=== PATIENT | male | born 1965 | race Caucasian/White ===

== ENCOUNTER 2017-03-12 18:39 | Observation (INO) | payer OTHER, MEDICARE ==
[~2017-03-12] VITALS: Ht 180.3 cm; Wt 102.1 kg
[~2017-03-12 18:39] MED LIST: AMBIEN10 MG PO; COUMADIN5 MG PO; LISINOPRIL5 MG PO; LOPRESSOR100 MG PO; PACERONE100 MG PO; ZETIA10 MG PO
--- NOTE | 2017-03-12 21:24 | Diagnostic Imaging Report ---
CHEST SINGLE (NOT PORTABLE), 03/12/2017 6:43 PM Technique: CHEST SINGLE (NOT PORTABLE) Comparison: 05/09/2009 Clinical history: Abnormal hemoglobin, atrial fibrillation Findings: Lines/tubes: Left chest wall dual-lead ICD. Heart/mediastinum: Within normal limits. Lungs/pleural spaces: Low lung volumes without consolidation or edema. No effusion. Lung apices are partially excluded. Impression: 1. Lines/Tubes: None 2. No acute abnormality. Signed by: Dr Meaghan Saldivar MD on 03/12/2017 9:20 PM
[2017-03-12 22:10] LABS: BASOPHILS # (AUTO) 0.1 (0.0-0.1); BASOPHILS % 1.5 % (0.0-1.0); EOSINOPHILS # (AUTO) 0.4 (0.0-0.4); EOSINOPHILS % 5.8 % (0.0-6.0); HEMATOCRIT 25.7 % (38.2-49.6); LYMPHOCYTES # (AUTO) 1.8 (1.0-3.2); LYMPHOCYTES % 26.9 % (18.0-39.1); MEAN CORPUSCULAR HEMOGLOBIN 17.4 pg (28-32); MEAN CORPUSCULAR HGB CONC 25.3 g/dL (31-35); MEAN CORPUSCULAR VOLUME 68.9 fL (81-99); MONOCYTES # (AUTO) 0.4 (0.2-0.8); MONOCYTES % 6.1 % (4.4-11.3); NEUTROPHILS % 59.4 % (38.7-80.0); PLATELET COUNT 659 x10e3/uL (140-360); RED BLOOD COUNT 3.73 x10e6/uL (4.3-5.7); RED CELL DISTRIBUTION WIDTH 25.4 % (11.7-14.4)
[2017-03-12 22:11] LABS: HEMOGLOBIN 6.5 g/dL (14.0-18.0)
[2017-03-12] MEDS ORDERED: SODIUM CHLORIDE 0.9% 250ML 250 ML IV ONE (22:15)
[2017-03-12 22:19] LABS: INR 1.45; PARTIAL THROMBOPLASTIN TIME 26.4 seconds (23.8-35.5); PROTHROMBIN TIME 18.4 seconds (11.9-14.5)
[2017-03-12 22:26] LABS: ALANINE AMINOTRANSFERASE 23 IU/L (0-55); ALBUMIN 4.2 g/dL (3.5-5.0); ALBUMIN/GLOBULIN RATIO 1.1 (0.8-2.0); ALKALINE PHOSPHATASE 76 IU/L (40-150); ANION GAP 15.1 mmol/L (8-16); BLOOD UREA NITROGEN 16 mg/dL (7-26); BUN/CREATININE RATIO 15 (6-25); CALCIUM 9.3 mg/dL (8.4-10.2); CARBON DIOXIDE 27 mmol/L (22-29); CHLORIDE 104 mmol/L (98-107); CREATINE KINASE 119 IU/L (30-200); CREATININE, SERUM 1.05 mg/dL (0.72-1.25); EST GLOMERULAR FILTRATION RATE > 60 ML/MIN (60-); GLUCOSE 139 mg/dL (74-118); POTASSIUM 4.1 mmol/L (3.5-5.1); SODIUM 142 mmol/L (136-145)
[2017-03-12 22:36] LABS: ANISOCYTOSIS SLIG; HYPOCHROMASIA SLIGHT; POIKILOCYTOSIS SLIGHT; TEAR DROP CELLS FEW
[2017-03-12 22:37] LABS: ELLIPTOCYTE, RBC SLIGHT; PLATELET ESTIMATE MODERATELY INCREASED; PLATELET MORPHOLOGY COMMENT NORMAL; RBC MORPHOLOGY COMMENT ABNORMAL; STOMATOCYTES SLIG
[2017-03-12] MEDS ORDERED: ONDANSETRON HCL INJ 2 MG/ML VIAL IV PRN (22:45)
[2017-03-12] MEDS ORDERED: SODIUM CHLORIDE FLUSH 10 ML SYR INJ PRN (22:45)
[2017-03-12 23:04] LABS: FERRITIN 1.65 ng/mL (21.81-274.66)
[2017-03-13] VITALS (7 sets, daily range): BP systolic 114–128; BP diastolic 57–70
[2017-03-13] MEDS ORDERED: METOPROLOL TART25 MG PO (00:34)
[2017-03-13] MEDS ORDERED: LOSARTAN POTASS25 MG PO (00:34)
[2017-03-13] MEDS ORDERED: AZELASTINE137 MCG/0. (00:34)
[2017-03-13] MEDS ORDERED: DULERA 100 MCG/13 GM (00:34)
[2017-03-13] MEDS: ACETAMINOPHEN 325 MG TAB PO PRN ×2 (01:30→21:18)
[2017-03-13] MEDS ORDERED: SODIUM CHLORIDE 0.9% 250ML 250 ML ONE ×2 (01:35→05:17)
[2017-03-13] MEDS: FUROSEMIDE INJ 10 MG/ML 2 ML VIAL IV PRN ×2 (05:00→09:35)
[2017-03-13] MEDS ORDERED: BISACODYL 5 MG TAB EC PO ONE (07:15)
[2017-03-13] MEDS ORDERED: PEG (High)/E-LYTE SOLN 4,000 ML BTL PO ONE (07:15)
--- NOTE | 2017-03-13 09:34 | History and Physical ---
CHIEF COMPLAINT: Shortness of breath and fatigue. Abnormal hemoglobin and hematocrit of 6.5 and 25.7, on anticoagulant therapy. HISTORY: Patient is a 51-year-old male who has multiple medical problems. Patient has a history of chronic atrial fibrillation, on Coumadin treatment. The patient came in with hemoglobin and hematocrit of 6.5 and 25.7. His INR was 1.45. Patient has anemia, and at times previously had blood transfusion years ago. The patient is otherwise stable at this time. No chest pain. Only shortness of breath when he increases his activities. PAST MEDICAL HISTORY: Congestive heart failure with AICD, coronary disease with previous stent, atrial fibrillation, on anticoagulant therapy. PAST SURGICAL HISTORY: AICD and bilateral hernia repair. SOCIAL HISTORY: Patient does not smoke, but he is a social drinker. ALLERGIES: NO KNOWN ALLERGIES. HOME MEDICATIONS: Zetia, losartan, metoprolol tartrate, Dulera, Coumadin, and Ambien. PHYSICAL EXAMINATION VITAL SIGNS: Temperature is 98, blood pressure 119/55, pulse rate 84, respirations 20. GENERAL: The patient is not in acute distress. He is awake. HEENT: Normocephalic, atraumatic and anicteric. NECK: Supple grossly. PULMONARY: Diminished breath sounds. CARDIOVASCULAR: Irregularly irregular rate control. ABDOMEN: Soft and nontender. No distention. EXTREMITIES: No gross cyanosis or edema. NEUROLOGIC: No focal deficit. LABORATORY: WBC 6.6, hemoglobin 6.5, hematocrit 25.7, and platelets 659,000. Coagulation: INR is 1.5. Chemistry: Sodium is 142, potassium 4.1, chloride 104, bicarb 27, BUN 15, creatinine 1, glucose is 1.39. Iron level is 14. Iron saturation is 2. IMPRESSION 1. Symptomatic anemia: Etiology unclear. The patient has iron deficiency. 2. Multiple chronic baseline problems, including anticoagulant therapy, subtherapeutic. 3. History of congestive heart failure, compensated. 4. Automatic implanted cardioverter defibrillator. 5. Atrial fibrillation. PLAN: Endoscopy by Dr. Dg Davis and consult. Blood transfusion. Repeat lab work. CT of chest, abdomen and pelvis with IV contrast. Will monitor the patient closely. Repeat the patient's blood work after blood transfusion. Job#: [id number] MD
[2017-03-13] MEDS: METOPROLOL TARTRATE 25 MG TAB PO SCH ×2 (09:35→17:40)
[2017-03-13] MEDS: PANTOPRAZOLE 40 MG 10ML VIAL IV SCH (09:35)
[2017-03-13] MEDS: LOSARTAN POTASSIUM 25 MG TAB PO SCH (09:35)
[2017-03-13] MEDS: EZETIMIBE 10 MG TAB PO SCH (09:35)
[2017-03-13] MEDS ORDERED: SODIUM CHLORIDE 0.9% 50ML 50 ML ONE (09:45)
[2017-03-13] MEDS ORDERED: IOPAMIDOL 370 MG/ML 200 ML INFUS..BTL INJ ONE (09:45)
[2017-03-13 10:58] LABS: BASOPHILS # (AUTO) 0.1 (0.0-0.1); BASOPHILS % 1.5 % (0.0-1.0); EOSINOPHILS # (AUTO) 0.3 (0.0-0.4); EOSINOPHILS % 4.7 % (0.0-6.0); HEMATOCRIT 30.5 % (38.2-49.6); HEMOGLOBIN 8.5 g/dL (14.0-18.0); LYMPHOCYTES # (AUTO) 1.2 (1.0-3.2); LYMPHOCYTES % 17.5 % (18.0-39.1); MEAN CORPUSCULAR HEMOGLOBIN 19.5 pg (28-32); MEAN CORPUSCULAR HGB CONC 27.9 g/dL (31-35); MONOCYTES # (AUTO) 0.5 (0.2-0.8); MONOCYTES % 7.5 % (4.4-11.3); NEUTROPHILS # (AUTO) 4.5 (2.1-6.9); NEUTROPHILS % 68.5 % (38.7-80.0); PLATELET COUNT 488 x10e3/uL (140-360); RED BLOOD COUNT 4.36 x10e6/uL (4.3-5.7); RED CELL DISTRIBUTION WIDTH 25.6 % (11.7-14.4)
[2017-03-13 11:18] LABS: ALANINE AMINOTRANSFERASE 22 IU/L (0-55); ALBUMIN 4.2 g/dL (3.5-5.0); ALBUMIN/GLOBULIN RATIO 1.3 (0.8-2.0); ALKALINE PHOSPHATASE 72 IU/L (40-150); ANION GAP 13.4 mmol/L (8-16); BLOOD UREA NITROGEN 15 mg/dL (7-26); BUN/CREATININE RATIO 15 (6-25); CALCIUM 8.8 mg/dL (8.4-10.2); CARBON DIOXIDE 25 mmol/L (22-29); CHLORIDE 101 mmol/L (98-107); CREATININE, SERUM 0.97 mg/dL (0.72-1.25); EST GLOMERULAR FILTRATION RATE > 60 ML/MIN (60-); GLUCOSE 136 mg/dL (74-118); POTASSIUM 3.4 mmol/L (3.5-5.1); SODIUM 136 mmol/L (136-145)
--- NOTE | 2017-03-13 11:45 | Diagnostic Imaging Report ---
PROCEDURE: CT scan of the chest abdomen and pelvis WITH intravenous contrast, using standard protocol. TECHNIQUE: The chest was scanned utilizing a multidetector helical scanner from the lung apex through the level of the lesser trochanters after the IV administration of 100 cc of Isovue 370. Coronal and sagittal multiplanar reformations were obtained. COMPARISON: CT abdomen and pelvis without contrast 04/29/2013. INDICATIONS: SYMPTOMATIC ANEMIA FINDINGS: Chest: Lines/tubes: None. Lungs and Airways: Bandlike atelectasis in the right lower and middle lobes. The lungs and airways are otherwise normal with no focal abnormality demonstrated. Pleura: The pleural spaces are clear. Heart and mediastinum: Left subclavian approach implantable cardiac device. It leads lie within the right atrium and right ventricle. Visualized portions of the thyroid gland appear normal. Calcified subcarinal lymph nodes. No axillary, hilar, or mediastinal lymphadenopathy. No ectasia or aneurysmal dilatation of the thoracic aorta. Pulmonary outflow tract is of normal caliber. Left anterior distending coronary artery calcifications with probable stent. No pericardial effusion. Soft tissues: Discussed below Bones: Discussed below. Abdomen/pelvis: Liver: No focal hepatic lesion or intrahepatic biliary ductal dilatation. The gallbladder is unremarkable. Spleen: Multiple calcified granulomata. No splenomegaly. Small splenule within the hilum. Pancreas: No focal mass or ductal dilatation. Adrenals: No nodules. Kidneys: Lobulated renal contours may be congenital or related to prior infectious/inflammatory process. No focal renal mass lesion. No calculus or hydronephrosis. Pelvic organs: The urinary bladder is unremarkable. Prostate and seminal vesicles appear normal. GI tract: As before, there are diverticula scattered along the course of the descending and sigmoid colon. No evidence of wall thickening or adjacent inflammatory change. Optimally, the large bowel is unremarkable. The appendix is normal. Small hiatal hernia. No small bowel dilatation to suggest obstruction. Lymph nodes: No pelvic sidewall, retroperitoneal, or mesenteric lymphadenopathy. Blood vessels: Atherosclerotic calcification of the abdominal aorta, major branch vessels, and iliac arterial systems, without aneurysmal dilatation. Incidental note of a separate origin of the left gastric artery from the celiac axis, with a replaced left hepatic artery arising from the left gastric artery. Portal vein, splenic vein, and central superior mesenteric vein are patent. Peritoneum/retroperitoneum: No ascites or pneumoperitoneum. Soft tissues: Umbilical hernia contains fat with associated inflammatory change. Fat containing right inguinal hernia. Bones: No osseous destructive lesions. Degenerative disc changes of the lower cervical and lumbar spine. IMPRESSION: No acute intrathoracic, abdominal, or pelvic CT abnormalities. Small umbilical ventral hernia contains inflamed omental fat. No evidence of bowel obstruction. Recurrent right inguinal fat-containing hernia. Atherosclerotic vascular disease. Large bowel diverticulosis without evidence of diverticulitis. Small hiatal hernia. Evidence of prior granulomatous infection. Dictated by: Giacomo Perez M.D. on 03/13/2017 at 11:54 Electronically approved by: Giacomo Perez M.D. on 03/13/2017 at 11:54
--- NOTE | 2017-03-13 11:46 | Diagnostic Imaging Report ---
PROCEDURE: CT ABDOMEN AND PELVIS WITH CONTRAST Findings: See impression IMPRESSION: For full dictated report please refer to "CT CHEST WITH CONTRAST" also from 03/13/2017. Dictated by: Giacomo Perez M.D. on 03/13/2017 at 11:55 Electronically approved by: Giacomo Perez M.D. on 03/13/2017 at 11:55
[2017-03-13 11:57] LABS: PLATELET ESTIMATE ADEQUATE; RBC MORPHOLOGY COMMENT ABNORMAL
[2017-03-13 11:58] LABS: ANISOCYTOSIS MODERATE; HYPOCHROMASIA MODERATE; MICROCYTOSIS MARKED; OVALOCYTES FEW; PLATELET MORPHOLOGY COMMENT FEW LARGE; POLYCHROMASIA FEW; TEAR DROP CELLS FEW
[2017-03-13 12:08] LABS: FOLATE 17.6 ng/mL (7.0-15.4)
[2017-03-13] MEDS ORDERED: POTASSIUM CHLORIDE 20 MEQ TAB CR PO NR ×2 (14:00→17:30)
[2017-03-13] MEDS ORDERED: MIDAZOLAM HCL 2 MG/2 ML VIAL ONE (18:48)
[2017-03-13] MEDS ORDERED: FENTANYL CITRATE/PF 100MCG/2 ML INJ ONE (18:48)
[2017-03-13] MEDS: ZOLPIDEM TARTRATE 10 MG TAB PO PRN (21:18)
[2017-03-14] VITALS (7 sets, daily range): BP systolic 94–135; BP diastolic 58–76
[2017-03-14 07:07] LABS: BASOPHILS # (AUTO) 0.1 (0.0-0.1); BASOPHILS % 0.9 % (0.0-1.0); EOSINOPHILS # (AUTO) 0.3 (0.0-0.4); HEMATOCRIT 31.3 % (38.2-49.6); HEMOGLOBIN 8.7 g/dL (14.0-18.0); LYMPHOCYTES % 24.4 % (18.0-39.1); MEAN CORPUSCULAR HEMOGLOBIN 19.4 pg (28-32); MEAN CORPUSCULAR HGB CONC 27.8 g/dL (31-35); MEAN CORPUSCULAR VOLUME 69.9 fL (81-99); MONOCYTES # (AUTO) 0.7 (0.2-0.8); MONOCYTES % 8.4 % (4.4-11.3); NEUTROPHILS % 62.1 % (38.7-80.0); PLATELET COUNT 538 x10e3/uL (140-360); RED BLOOD COUNT 4.48 x10e6/uL (4.3-5.7)
[2017-03-14 07:34] LABS: ALANINE AMINOTRANSFERASE 22 IU/L (0-55); ALBUMIN/GLOBULIN RATIO 1.2 (0.8-2.0); ALKALINE PHOSPHATASE 77 IU/L (40-150); ANION GAP 14.9 mmol/L (8-16); BLOOD UREA NITROGEN 16 mg/dL (7-26); BUN/CREATININE RATIO 18 (6-25); CALCIUM 9.2 mg/dL (8.4-10.2); CARBON DIOXIDE 27 mmol/L (22-29); CHLORIDE 103 mmol/L (98-107); EST GLOMERULAR FILTRATION RATE > 60 ML/MIN (60-); GLUCOSE 101 mg/dL (74-118); POTASSIUM 3.9 mmol/L (3.5-5.1); SODIUM 141 mmol/L (136-145)
[2017-03-14] MEDS: LOSARTAN POTASSIUM 25 MG TAB PO SCH (10:00)
[2017-03-14] MEDS: METOPROLOL TARTRATE 25 MG TAB PO SCH ×2 (10:00→17:51)
[2017-03-14] MEDS: EZETIMIBE 10 MG TAB PO SCH (10:00)
[2017-03-14] MEDS: PANTOPRAZOLE 40 MG 10ML VIAL IV SCH (10:00)
[2017-03-14] MEDS ORDERED: LIDOCAINE HCL 2% LOCAL INJ 5 ML SDV VIAL INJ ONE (18:01)
[2017-03-14] MEDS ORDERED: PROPOFOL IV EMULSION 10 MG/ML 20 ML VIAL ONE (18:01)
[2017-03-14] MEDS: ZOLPIDEM TARTRATE 10 MG TAB PO PRN (23:00)
[2017-03-14] MEDS: ACETAMINOPHEN 325 MG TAB PO PRN (23:00)
[2017-03-15] VITALS: BP 102/58
[2017-03-15 04:00] VITALS: BP_SYST 100; BP_SYST 117; BP_DIAS 54; BP_DIAS 66
[2017-03-15 07:01] LABS: BASOPHILS # (AUTO) 0.1 (0.0-0.1); BASOPHILS % 0.8 % (0.0-1.0); EOSINOPHILS # (AUTO) 0.3 (0.0-0.4); EOSINOPHILS % 3.9 % (0.0-6.0); HEMATOCRIT 30.5 % (38.2-49.6); HEMOGLOBIN 8.2 g/dL (14.0-18.0); LYMPHOCYTES # (AUTO) 2.3 (1.0-3.2); LYMPHOCYTES % 31.7 % (18.0-39.1); MEAN CORPUSCULAR HEMOGLOBIN 19.2 pg (28-32); MEAN CORPUSCULAR HGB CONC 26.9 g/dL (31-35); MEAN CORPUSCULAR VOLUME 71.6 fL (81-99); MONOCYTES # (AUTO) 0.7 (0.2-0.8); MONOCYTES % 10.4 % (4.4-11.3); NEUTROPHILS # (AUTO) 3.8 (2.1-6.9); NEUTROPHILS % 52.8 % (38.7-80.0); PLATELET COUNT 559 x10e3/uL (140-360); RED BLOOD COUNT 4.26 x10e6/uL (4.3-5.7); RED CELL DISTRIBUTION WIDTH 26.3 % (11.7-14.4)
[2017-03-15 07:37] LABS: ANION GAP 12.8 mmol/L (8-16); BLOOD UREA NITROGEN 20 mg/dL (7-26); BUN/CREATININE RATIO 24 (6-25); CALCIUM 9.1 mg/dL (8.4-10.2); CARBON DIOXIDE 26 mmol/L (22-29); CHLORIDE 107 mmol/L (98-107); CREATININE, SERUM 0.84 mg/dL (0.72-1.25); EST GLOMERULAR FILTRATION RATE > 60 ML/MIN (60-); GLUCOSE 100 mg/dL (74-118); POTASSIUM 3.8 mmol/L (3.5-5.1); SODIUM 142 mmol/L (136-145)
[2017-03-15 08:07] LABS: EOSINOPHILS % (MANUAL) 3 % (0-7); LYMPHOCYTES % (MANUAL) 21 % (19-48); MONOCYTES % (MANUAL) 18 % (3.4-9.0); NEUTROPHILS % (MANUAL) 57 % (40-74)
[2017-03-15 08:08] VITALS: BP 95/51
[2017-03-15 08:08] LABS: MICROCYTOSIS MARKED; PLATELET ESTIMATE SLIGHTLY INCREASED; PLATELET MORPHOLOGY COMMENT NORMAL; RBC MORPHOLOGY COMMENT ABNORMAL
[2017-03-15 08:09] LABS: ANISOCYTOSIS MARKED; HYPOCHROMASIA MODERATE; OVALOCYTES FEW; POLYCHROMASIA FEW
[2017-03-15] MEDS: EZETIMIBE 10 MG TAB PO SCH (08:09)
[2017-03-15] MEDS: PANTOPRAZOLE 40 MG 10ML VIAL IV SCH (08:09)
[2017-03-15] MEDS: METOPROLOL TARTRATE 25 MG TAB PO SCH (08:10)
[2017-03-15] MEDS: LOSARTAN POTASSIUM 25 MG TAB PO SCH (08:10)
[2017-03-15 09:32] VITALS: BP 95/51
[2017-03-15] MEDS ORDERED: COLACE100 MG PO (11:08)
[2017-03-15] MEDS ORDERED: PANTOPRAZOLE SO40 MG PO (11:09)
[2017-03-15] MEDS ORDERED: CARAFATE1 GM PO (11:09)
[2017-03-15] MEDS ORDERED: HEMOCYTE PLUS1 EACH PO (11:10)
--- NOTE | 2017-03-15 11:51 | Discharge Summary ---
PCP: Dr. Pino Fuller FINAL DIAGNOSES: 1. Severe anemia with symptomatic shortness of breath, status post 2 units blood transfusion. His hemoglobin and hematocrit today are 8.2 and 30.5. 2. Anticoagulant therapy, subtherapeutic however. 3. Status post esophagogastroduodenoscopy and colonoscopy with findings of esophageal ulcer without bleed, hiatal hernia, gastric polyps, gastritis, diverticulosis without diverticulitis. SUMMARY: Patient is a 51-year-old male who came in with hemoglobin and hematocrit of 6.5 and 25.7. Patient was on anticoagulant therapy. INR was 1.45. Patient had other tests including imaging tests. The CT abdomen and pelvis along with CT of the chest were without any significant abnormality. Patient is stable. He underwent EGD and colonoscopy by Dr. Dg Davis. Finding as mentioned above. The patient will be discharged home today with the following medications: 1. Colace 100 mg b.i.d. 2. Carafate suspension 1 g q.a.c. nightly. 3. Protonix 40 mg daily. 4. Hemocyte Plus 1 tablet b.i.d. The patient was instructed to follow up with Dr. Davis next week. The patient will hold off on his anticoagulant therapy until he is seen by Dr. Davis. Patient is otherwise stable at this time. No further workup needed. Job#: [id number]
[2017-03-15 12:01] VITALS: BP 129/69
--- NOTE | 2017-04-18 18:35 | Consultation ---
DATE OF CONSULTATION: March 13, 2017 GASTROENTEROLOGY CONSULTATION HISTORY OF PRESENT ILLNESS: This is a 51-year-old who has history of congestive heart failure with AICD, coronary artery disease with previous stent placement, atrial fibrillation on anticoagulation therapy. Presented to the hospital because of problems with anemia, shortness of breath and fatigue. His hemoglobin is down as low as 6.5. Patient does not have any abdominal pain, nausea or vomiting at this point. OTHER MEDICAL PROBLEMS: Significant for congestive heart failure, previous AICD, coronary artery disease with previous stent, atrial fibrillation. ALLERGIES: NONE. SOCIAL HISTORY: Does not smoke or drink. MEDICATIONS AT HOME: Including Zetia, losartan, metoprolol, Dulera, Coumadin and Ambien. REVIEW OF SYSTEMS: At this point denies any chest pain, denies any shortness of breath. Denies any dysphagia or odynophagia. Denies any dysuria, hematuria, or any kind of syncopal episode. PHYSICAL EXAMINATION GENERAL: The patient is awake, alert, appears to be stable. Not in acute distress at this point. VITAL SIGNS: He is afebrile currently with stable vital signs. HEAD, EYES, EARS, NOSE AND THROAT: Normocephalic and atraumatic. Sclera is anicteric. NECK: Supple. CARDIAC: Exam is regular. LUNGS: Clear. ABDOMEN: Soft. There is no distention at this point. It is nontender. EXTREMITIES: No cyanosis, no clubbing. LAB VALUES: Significant for INR was 1.5, hemoglobin of 6.5, hematocrit of 25.7, WBC of 6.6. BUN 15, creatinine 1. Iron is 14 with iron saturation of 2. IMPRESSION 1. Symptomatic iron deficiency anemia. 2. Congestive heart failure, previous automatic implantable cardioverter-defibrillator. RECOMMENDATION: anticoagulation. Agree with CT of the chest, abdomen and pelvis. We will proceed with EGD and colonoscopy for further evaluation. Follow labs and clinically. Job#: [id number] EV cc: ANNA ANDERSON MD cc:ZITA ALVES MD
== END 2017-03-15 11:43 | disposition home or self-care (01) ==
LOC: ER 18:39 → INTOOBSV 23:06 → MED/SURG 23:06
PROVIDERS: ADMIT Internal Medicine; ATTEND Internal Medicine
DX: D50.9 Iron deficiency anemia, unspecified (principal); I48.2 Chronic atrial fibrillation; Z79.01 Long term (current) use of anticoagulants; K22.10 Ulcer of esophagus without bleeding; K44.9 Diaphragmatic hernia without obstruction or gangrene; K31.7 Polyp of stomach and duodenum; K29.70 Gastritis, unspecified, without bleeding; K57.30 Diverticulosis of large intestine without perforation or abscess without bleeding; Z95.810 Presence of automatic (implantable) cardiac defibrillator; I25.10 Atherosclerotic heart disease of native coronary artery without angina pectoris; Z95.5 Presence of coronary angioplasty implant and graft; I50.9 Heart failure, unspecified
CPT/HCPCS: 36415 ×4; 36430 ×2; 43239; 45378; 71045; 71260; 74177; 80048; 80053 ×3; 82550; 82553; 82607; 82728; 82746; 83540; 84466; 84484; 85025 ×4; 85610; 85730; 86850; 86900; 86920; 88305; 88312; 93005; 99284; G0378 ×4; J1940; J2001; J2250; J7050; P9016; Q9967

== ENCOUNTER → 2017-07-10 | Day surgery (SDC) | payer OTHER, MEDICARE ==
[~2017-07-10] MED LIST changes: +AMBIEN CR12.5 MG PO; +AZELASTINE137 MCG/0.; +BENZOCAINE/TETRACAINE/BUTAMBEN AERO SPRAY 56 GM CAN ONE; +CARAFATE1 GM PO; +COLACE100 MG PO; +COUMADIN2 MG PO; +CRESTOR10 MG PO; +DULERA 100 MCG/13 GM; +HEMOCYTE PLUS1 EACH PO; +IRON PO; +LOSARTAN POTASS25 MG PO; +METOPROLOL SUCC50 MG PO; +METOPROLOL TART25 MG PO; +MIDAZOLAM HCL 2 MG/2 ML VIAL ONE; +PANTOPRAZOLE SO40 MG PO; +PROPOFOL IV EMULSION 10 MG/ML 20 ML VIAL ONE
--- OUTSIDE RECORDS SUMMARY | 2017-07-10 09:14 | XMS REPORT ---
Author Author [facility] Address Unknown Phone Unavailable Care Team Providers Care Claim Approver Name Role Phone ANNA ANDERSON Unavailable Unavailable Problems This patient has no known problems. Allergies, Adverse Reactions, Alerts This patient has no known allergies or adverse reactions. Medications This patient has no known medications. Results Test Description Test Time Test Comments Text Results Atomic Results Result Comments CT CHEST W [place] [address] Patient Name: ESTHELA CROWE MR #: [id number] : 1965 Age/Sex: 51/M Req #: [id number] [facility] Physician: ANNA ANDERSON MD Ordered by: ANNA ANDERSON MD Report # : [id number] Location: MED/SURG Room/Bed: [facility] Procedure: [id number] CT/CT CHEST W Exam Date: 03/13/17 Exam Time: 1010 REPORT STATUS: Signed PROCEDURE: CT scan of the chest abdomen and pelvis WITH intravenous contrast, using standard protocol. TECHNIQUE: The chest was scanned utilizing a multidetector helical scanner from the lung apex through the level of the lesser trochanters after the IV administration of 100 cc of Isovue 370. Coronal and sagittal multiplanar reformations were obtained. COMPARISON: CT abdomen and pelvis without contrast 04/29/2013. INDICATIONS: SYMPTOMATIC ANEMIA FINDINGS: Chest: Lines/tubes: None. Lungs and Airways: Bandlike atelectasis in the right lower and middle lobes. The lungs and airways are otherwise normal with no focal abnormality demonstrated. Pleura: The pleural spaces are clear. Heart and mediastinum: Left subclavian approach implantable cardiac device. It leads lie within the right atrium and right ventricle. Visualized portions of the thyroid gland appear normal. Calcified subcarinal lymph nodes. No axillary, hilar, or mediastinal lymphadenopathy. No ectasia or aneurysmal dilatation of the thoracic aorta. Pulmonary outflow tract is of normal caliber. Left anterior distending coronary artery calcifications with probable stent. No pericardial effusion. Soft tissues: Discussed below Bones: Discussed below. Abdomen/ pelvis: Liver: No focal hepatic lesion or intrahepatic biliary ductal dilatation. The gallbladder is unremarkable. Spleen: Multiple calcified granulomata. No splenomegaly. Small splenule within the hilum. Pancreas : No focal mass or ductal dilatation. Adrenals: No nodules. Kidneys : Lobulated renal contours may be congenital or related to prior infectious/ inflammatory process. No focal renal mass lesion. No calculus or hydronephrosis. Pelvic organs: The urinary bladder is unremarkable. Prostate and seminal vesicles appear normal. GI tract: As before, there are diverticula scattered along the course of the descending and sigmoid colon. No evidence of wall thickening or adjacent inflammatory change. Optimally, the large bowel is unremarkable. The appendix is normal. Small hiatal hernia. No small bowel dilatation to suggest obstruction. Lymph nodes: No pelvic sidewall, retroperitoneal, or mesenteric lymphadenopathy. Blood vessels: Atherosclerotic calcification of the abdominal aorta, major branch vessels, and iliac arterial systems, without aneurysmal dilatation. Incidental note of a separate origin of the left gastric artery from the celiac axis, with a replaced left hepatic artery arising from the left gastric artery. Portal vein, splenic vein, and central superior mesenteric vein are patent. Peritoneum/retroperitoneum: No ascites or pneumoperitoneum. Soft tissues: Umbilical hernia contains fat with associated inflammatory change. Fat containing right inguinal hernia. Bones: No osseous destructive lesions. Degenerative disc changes of the lower cervical and lumbar spine. IMPRESSION: No acute intrathoracic , abdominal, or pelvic CT abnormalities. Small umbilical ventral hernia contains inflamed omental fat. No evidence of bowel obstruction. Recurrent right inguinal fat-containing hernia. Atherosclerotic vascular disease. Large bowel diverticulosis without evidence of diverticulitis. Small hiatal hernia. Evidence of prior granulomatous infection. Dictated by: Gino Boyce M.D. on 03/13/2017 at 11:54 Electronically approved by: Gino Boyce M.D. on 03/13/2017 at 11:54 Dictated By: GINO BOYCE MD 115 Transcribed By: DA on 03/13/171153 COPY TO: ANNA ANDERSON MD CT ABDOMEN/PELVIS W [place] [address] Patient Name: ESTHELA CROWE MR #: [id number] : 1965 Age/Sex: 51/M Req #: [id number] Adm Physician: ANNA ANDERSON MD Ordered by: ANNA ANDERSON MD Report #: [id number] Location: MED/SURG Room/Bed: [facility] _ Procedure: [id number] CT/CT ABDOMEN/PELVIS W Exam Date: 03/13/17 Exam Time: 1010 REPORT STATUS: Signed PROCEDURE: CT ABDOMEN AND PELVIS WITH CONTRAST Findings: See impression IMPRESSION: For full dictated report please refer to "CT CHEST WITH CONTRAST" also from 03/13/2017. Dictated by: Gino Boyce M.D. on 2017 at 11:55 Electronically approved by: Gino Boyce M.D. on 03/13/2017 at 11:55 Dictated By: GINO BOYCE MD 54 Transcribed By: DA on 03/13/171154 COPY TO: ANNA ANDERSON MD CHEST SINGLE (NOT PORTABLE) [place] [address] Patient Name: ESTHELA CROWE MR #: [id number] : 1965 Age/Sex: 51/M Req #: [id number] [facility] Physician: Ordered by: LINDA LO D[employer]ITAL CONTENT SPECIALIST Report #: [id number] Location: ER Room/Bed: Procedure: [id number] DX/CHEST SINGLE (NOT PORTABLE) Exam Date: 03/12/17 Exam Time: 1920 REPORT STATUS: Signed CHEST SINGLE (NOT PORTABLE), 03/12/2017 6:43 PM Technique: CHEST SINGLE (NOT PORTABLE) Comparison: 05/09/2009 Clinical history: Abnormal hemoglobin, atrial fibrillation Findings: Lines/tubes: Left chest wall dual-lead ICD. Heart/mediastinum: Within normal limits. Lungs/pleural spaces: Low lung volumes without consolidation or edema. No effusion. Lung apices are partially excluded. Impression: 1. Lines/Tubes: None 2. No acute abnormality. Signed by: Dr Dee Saldivar MD on 03/12/2017 9:20 PM Dictated By: DEE SALDIVAR MD 19 Transcribed By: ALBERT on 03/12/172119 COPY TO: LINDA LO D[employer]ITAL CONTENT SPECIALIST
[2017-07-10 09:51] LABS: BASOPHILS # (AUTO) 0.1 (0.0-0.1); EOSINOPHILS # (AUTO) 0.4 (0.0-0.4); EOSINOPHILS % 5.4 % (0.0-6.0); HEMATOCRIT 48.8 % (38.2-49.6); HEMOGLOBIN 15.9 g/dL (14.0-18.0); LYMPHOCYTES % 29.3 % (18.0-39.1); MEAN CORPUSCULAR HEMOGLOBIN 29.6 pg (28-32); MEAN CORPUSCULAR HGB CONC 32.6 g/dL (31-35); MEAN CORPUSCULAR VOLUME 90.7 fL (81-99); MONOCYTES # (AUTO) 0.6 (0.2-0.8); MONOCYTES % 9.4 % (4.4-11.3); NEUTROPHILS # (AUTO) 3.7 (2.1-6.9); NEUTROPHILS % 54.6 % (38.7-80.0); PLATELET COUNT 262 x10e3/uL (140-360); RED BLOOD COUNT 5.38 x10e6/uL (4.3-5.7); RED CELL DISTRIBUTION WIDTH 18.7 % (11.7-14.4)
[2017-07-10 10:16] LABS: INR 1.18; PARTIAL THROMBOPLASTIN TIME 26.2 seconds (23.8-35.5); PROTHROMBIN TIME 14.1 seconds (11.9-14.5)
== END | disposition home or self-care (01) ==
LOC: OR 09:12
PROVIDERS: ATTEND Internal Medicine Gastroenterology
DX: K22.10 Ulcer of esophagus without bleeding (principal); K29.70 Gastritis, unspecified, without bleeding; K21.0 Gastro-esophageal reflux disease with esophagitis; K44.9 Diaphragmatic hernia without obstruction or gangrene; I48.91 Unspecified atrial fibrillation; G47.33 Obstructive sleep apnea (adult) (pediatric); I25.10 Atherosclerotic heart disease of native coronary artery without angina pectoris; I25.2 Old myocardial infarction; E78.5 Hyperlipidemia, unspecified; E03.9 Hypothyroidism, unspecified; F31.9 Bipolar disorder, unspecified; F41.9 Anxiety disorder, unspecified; Z01.810 Encounter for preprocedural cardiovascular examination; Z79.01 Long term (current) use of anticoagulants; Z95.810 Presence of automatic (implantable) cardiac defibrillator; Z87.891 Personal history of nicotine dependence
CPT/HCPCS: 36415; 43239; 85025; 85610; 85730; 93005; J2250